=== PATIENT | male | born 1990 | race Caucasian/White ===

== ENCOUNTER 2018-08-13 05:20 | Emergency (ER) | payer SELFPAY ==
[~2018-08-13] VITALS: Ht 172.7 cm; Wt 77.0 kg
[2018-08-13 05:31] VITALS: BP 139/80
[2018-08-13] MEDS ORDERED: LIDOCAINE HCL/PF 1% 10 MG/ML 5ML VIAL IJ ONE (07:00)
[2018-08-13] MEDS ORDERED: BACITRACIN ZINC OINT UDPKT TOP ONE (07:00)
[2018-08-13] MEDS ORDERED: TETANUS, DIPHTHERIA, PERTUSSIS VAC/PF 0.5ML (>7YR OLD) IM ONE (07:00)
[2018-08-13] MEDS ORDERED: LORAZEPAM 1MG TABLET PO ONE (07:00)
== END 2018-08-13 07:25 | disposition left against medical advice (07) ==
LOC: ER 05:26
DX: S01.01XA Laceration without foreign body of scalp, initial encounter (principal); Y04.0XXA Assault by unarmed brawl or fight, initial encounter; Y93.89 Activity, other specified; Y92.89 Other specified places as the place of occurrence of the external cause
CPT/HCPCS: 99283